=== PATIENT | female | born 1985 | race Caucasian/White ===

== ENCOUNTER 2018-11-28 10:42 | Emergency (ER) | payer MEDICAID, SELFPAY ==
[2018-11-28 12:39] LABS: ALT (SGPT) 22 U/L (8-55); AST (SGOT) 15 U/L (5-34); Albumin 4.3 g/dL (3.5-5.0); Alkaline Phosphatase 66 U/L (40-150); Anion Gap 13 mmol/L (10-20); BUN (Urea Nitrogen) 10 mg/dL (7.0-18.7); Bilirubin, Total 0.4 mg/dL (0.2-1.2); Calc. Creatinine Clearance 0 mL/min (70-130); Calcium 9.5 mg/dL (7.8-10.44); Carbon Dioxide 23 mmol/L (22-29); Chloride 105 mmol/L (98-107); Estimated GFR-MDRD Greater than 90; Glucose 100 mg/dL (70-105); Potassium 4.1 mmol/L (3.5-5.1); Protein, Total 7.3 g/dL (6.0-8.3); Sodium 137 mmol/L (136-145)
[2018-11-28 12:47] LABS: Hemoglobin 13.1 g/dL (12.0-16.0); Mean Corpuscular HGB CONC 33.6 g/dL (32.0-36.0); Mean Corpuscular Hemoglobin 29.4 pg (27.0-31.0); Mean Corpuscular Volume 87.5 fL (78.0-98.0); Mean Platelet Volume 8.9 fL (7.4-10.4); Platelet Count 247 thou/uL (130-400); RBC Distribution Width 12.7 % (11.5-14.5); Red Blood Cell (RBC) Count 4.46 mill/uL (4.20-5.40)
[2018-11-28 12:51] LABS: Band 4 % (5-11); Eosinophils 1 % (0-10); Lymphocytes 11 % (21-51); MDiff Complete? YES; Monocytes 4 % (0-10); Neutrophil 79 % (42-75); Platelet Morphology Comment Appears Adequate; RBC Morphology Normal
--- NOTE | 2018-11-28 13:17 | ULT ---
PELVIC ULTRASOUND: 11/28/2018 HISTORY: Positive outside urine test. Beta hCG level is not currently available. The patient is avilez ving right pelvic pain. TECHNIQUE: Transabdominal and endovaginal sonographic images of the pelvis are obtained. FINDINGS: The uterus measures 8.8 cm x 4.4 cm x 5.6 cm. The endometrial stripe measures 0.9 cm in thickness. No fluid or fluid collection is seen in the endometrial canal. The ovaries are not visualized bilaterally. There is a heterogeneous structures seen in the right ad nexa, which measures 3 cm x 1.7 cm, and is in the expected location of the right ovary but does not h ave the typical appearance to suggest that this does represent the right ovary. An anechoic area is seen centrally, within this heterogeneous region. In addition, there is adjacent fluid with increase d echogenicity, suggesting complicated fluid within the right adnexal region. The area of heterogene ity in the right adnexal region measures 4.4 cm x 3 cm with a central area of decreased echogenicity measuring approximately 1.3 cm. Ectopic is a consideration, given the complicated adjacent fluid. The left ovary is obscured by bowel gas. A tiny amount of free fluid is seen adjacent to the inferior margin of the right hepatic lobe. IMPRESSION: 1. No fluid collection is seen in the endometrial canal to suggest an intrauterine gestation. While findings could be related to an early intrauterine gestation, there is a heterogeneous structure wit hin the right adnexal region, with adjacent complicated fluid. Ectopic cannot be excluded on this exam. Correlation with quantitative beta hCG level is recommended, and ectopic is a consideration. 2. Tiny amount of free fluid adjacent to the right hepatic lobe. 3. Non visualization of either ovary. The above findings were discussed with Dr. Nguyen in the emergency department on 11/28/2018 at 1227 hours. CODE CR POS: [facility]
--- NOTE | 2018-11-28 13:25 | PDOC.EVN ---
Event Note - Event Note Event Note: OBGYN Consult from [facility] ED Called by ED physician on 11/28/18 at 1245 CC: BHCG 3292 with no POC in uterus HPI: 33 yo H with non-bleeding, mild pelvic pain. No HX clots or VB. Seen at that location with BHCG of 3296 and possible right "mas" under 1.5cm. I was called for possible ectopic care. Review of Systems: as per HPI Discussion: I talked with the patient on speaker phone along with Dr Nguyen. In ukrainian, I discussed her findings and the possibility of ectopic. I discussed Methotrxate with her as emperic RX. The patient was a bit unsure of methotrexate, as she was concerned if the medication was given to a good in error. I shared with her that she had a valid concern. Dr Nguyen and I reviewed the 2018 ACOG New Bulletin on Ectopic, with 3500 set as the new "discriminatory" zone in stable patients. Labs: Hct 3296 RH type pending HCT 39 Sono: as per HPI: No free fluid on sono No known risk factors for ectopic. Assessment and plan: Preg unknown location with unsure "mass" at under 1.5cm on right and BHCG 3296 with no IUP. No VB After detailed discussion on both emperic methotrexate vs expectant management, she has agreed on and prefers expectant care. I reviewed potential risks of tubal rupture if ectopic, and we have settled on short term follow up...repeat labs in 24-48 hours and see what BHCG doing as she is hemodynamically stable. I have addressed this and ED precautions as well. She will follow up with [facility] (Dr Nguyen to arrange) in 24-48 hours. As misscarriages are more common than ectopic, I think this plan of close follow up is valid in light of the newer more conservative ACOG guidelines. I have discussed this on the phone with Dr Philippe Nguyen and the patient in ukrainian via telemedicine.
[2018-11-28] MEDS ORDERED: Ketorolac Tromethamine 30 MG/ML VIAL ONE ×2 (15:22→15:23)
--- NOTE | 2018-11-28 16:38 | ULT ---
PELVIC ULTRASOUND: Date: 11/28/18 HISTORY: Patient has a positive test and features on an earlier ultrasound done today that raised th e possibility of an ectopic in the right adnexal region. Patient now has increasing pain and H&H has been dropping. FINDINGS: Real-time imaging of the pelvis was performed. Transabdominal, as well as endovaginal images obtained . The overall quality of the examination is less on visualized adnexal structures as compared to the pr ior exam. The uterus is once again noted to be normal in appearance. No signs that would suggest any type of intrauterine gestation. There is heterogeneity in the region of the right adnexa. Some of thi s probably represents hemorrhage as there appears to be somewhat complex fluid. It is difficult to sa y whether there has been a significant change since the previous examination as this and adjacent bow el all merge. There was some minimal free fluid in Morison's pouch noted on the prior exam that is st ill present, but not significantly different. The left ovary is never well visualized. IMPRESSION: Heterogeneity in the region of the right adnexa, which is ill-defined. It is difficult to say whether or not there has been a significant change in the appearance of the right adnexal region as compared to the prior exam. There is not a large amount of free fluid demonstrated. There is what appears to be some complex fluid difficult to define due to its similar echogenicity to adjacent structures. POS: [facility]
== END 2018-11-28 16:54 | disposition home or self-care (01) ==
LOC: SCSER 10:42
DX: O99.89 Other specified diseases and conditions complicating pregnancy, childbirth and the puerperium (principal); R10.31 Right lower quadrant pain; Z3A.01 Less than 8 weeks gestation of pregnancy
CPT/HCPCS: 76856; 80053; 84702; 85025; 96361; 96374; J1885; J2270

== ENCOUNTER 2019-07-05 10:44 | Outpatient (CLI) | payer MEDICAID ==
--- NOTE | 2019-07-05 12:12 | ULT ---
ULTRASOUND PELVIC DOPPLER DUPLEX: DATE: 07/05/2019 HISTORY: 34-year-old female with right pelvic pain TECHNIQUE: Transabdominal transducer used to visualize intrapelvic contents with grayscale, color-flow, and spec tral analysis. Endovaginal transducer not used. FINDINGS: Uterus: 9.5 x 4 x 5 cm. Endometrial stripe: 0.7 cm (7 mm) No moderate sized or large uterine leiomyoma identified. Right ovary: 5.5 x 4 x 4.5 cm, expanded by a 4 x 3 x 2.5 cm cyst. Left ovary: 3.5 x 1.5 x 2 cm. Blood flow documented in bilateral ovaries. No free fluid in the cul-de-sac IMPRESSION: 4 cm right ovarian cyst.
== END 2019-07-05 10:45 | disposition home or self-care (01) ==
LOC: SCSULT 10:44
PROVIDERS: ATTEND Nurse Practitioner Women's Health
DX: Z01.419 Encounter for gynecological examination (general) (routine) without abnormal findings (principal); N83.201 Unspecified ovarian cyst, right side
CPT/HCPCS: 76856; 93976